=== PATIENT | female | born 1965 | race Caucasian/White ===

== ENCOUNTER 2022-12-29 10:16 | Outpatient (CLI) | payer BC | END 2022-12-29 10:17 | disposition home or self-care (01) | LOC: CSHMAMMO 10:16 | PROVIDERS: ATTEND Physician Assistant | DX: Z12.31 Encounter for screening mammogram for malignant neoplasm of breast (principal); Z91.89 Other specified personal risk factors, not elsewhere classified | CPT/HCPCS: 77063; 77067 ==

== ENCOUNTER 2024-02-09 10:57 | Outpatient (CLI) | payer BC | END 2024-02-09 10:58 | disposition home or self-care (01) | LOC: CSHMAMMO 10:57 | PROVIDERS: ATTEND Family Medicine | DX: Z12.31 Encounter for screening mammogram for malignant neoplasm of breast (principal); Z98.890 Other specified postprocedural states | CPT/HCPCS: 77067 ==